=== PATIENT | male | born 2000 | race Caucasian/White ===

== ENCOUNTER 2019-08-22 06:01 | Emergency (ER) | payer OTHER ==
[~2019-08-22] VITALS: Ht 182.9 cm; Wt 90.7 kg
[2019-08-22 06:34] LABS: ABSOLUTE NEUTROPHILS 3.4 thou/uL (1.4-8.2); BASOPHILS 0.6 % (0.0-2.0); EOSINOPHILS 0.7 % (0.0-3.0); HEMATOCRIT 48.1 % (42.0-52.0); LYMPHOCYTES 34.7 % (24.0-44.0); MCH 30.4 pg (26.0-34.0); MCHC 33.2 g/dL (28.0-37.0); MCV 91.5 fL (80.0-100.0); MONOCYTES 10.6 % (1.0-8.0); PLATELET COUNT 266 thou/uL (150-400); POLYS 53.4 % (36.0-66.0); RBC 5.26 mil/uL (4.50-6.00); RDW 13.2 % (10.5-14.5); WBC 6.4 thou/uL (4.0-11.0)
[2019-08-22 06:36] LABS: POTASSIUM 3.8 mmol/L (3.5-5.1)
[2019-08-22 06:42] LABS: DIRECT BILIRUBIN 0.2 mg/dL (<0.1-0.2); TOTAL BILIRUBIN 1.4 mg/dL (<0.1-1.0)
[2019-08-22] MEDS ORDERED: ZOFRAN ODT4 MG PO (09:38)
[2019-08-22 09:51] VITALS: BP 114/61
== END 2019-08-22 09:52 | disposition home or self-care (01) ==
LOC: ER 06:01
PROVIDERS: Emergency Medicine
DX: K52.9 Noninfective gastroenteritis and colitis, unspecified (principal); F17.210 Nicotine dependence, cigarettes, uncomplicated

== ENCOUNTER 2019-08-28 17:26 | Emergency (ER) | payer OTHER ==
[~2019-08-28] VITALS: Ht 182.9 cm; Wt 81.7 kg
[~2019-08-28 17:26] MED LIST: ZOFRAN ODT4 MG PO
[2019-08-28 18:22] LABS: URINE BLOOD NEGATIVE (Negative); URINE CLARITY CLEAR; URINE COLOR YELLOW; URINE GLUCOSE-RANDOM* NEGATIVE (Negative); URINE KETONES NEGATIVE (Negative); URINE LEUKOCYTES-REFLEX NEGATIVE (Negative); URINE NITRITE-REFLEX NEGATIVE (Negative); URINE PROTEIN (DIPSTICK) TRACE (Negative); URINE SPECIFIC GRAVITY >= 1.030 (1.005-1.035); URINE UROBILINOGEN 0.2 E.U./dl (0.2-1.0)
[2019-08-28 18:24] LABS: ICTOTEST (BILI CONFIRMATORY) Negative (Negative); URINE BILIRUBIN NEGATIVE (Negative)
[2019-08-28 19:34] VITALS: BP 114/76
[2019-08-29] MEDS ORDERED: PHENERGAN 25 MG25 M1 PO ×2 (19:21)
[2019-08-29] MEDS ORDERED: LEVSIN0.125 MG PO ×2 (19:21)
[2019-08-29] MEDS ORDERED: NAPROSYN500 MG PO ×2 (19:21)
[2019-08-29] MEDS ORDERED: PEPCID20 MG PO ×2 (19:21)
== END 2019-08-28 19:34 | disposition left against medical advice (07) ==
LOC: ER 17:26
PROVIDERS: Emergency Medicine
DX: M54.5 Low back pain (principal); F17.210 Nicotine dependence, cigarettes, uncomplicated

== ENCOUNTER 2019-08-29 15:44 | Emergency (ER) | payer OTHER ==
[~2019-08-29] VITALS: Ht 182.9 cm; Wt 81.7 kg
[2019-08-29 17:27] LABS: ABSOLUTE NEUTROPHILS 6.7 thou/uL (1.4-8.2); BASOPHILS 0.2 % (0.0-2.0); HEMATOCRIT 48.7 % (42.0-52.0); HEMOGLOBIN 16.3 gm/dL (14.0-18.0); LYMPHOCYTES 14.3 % (24.0-44.0); MCHC 33.6 g/dL (28.0-37.0); MCV 92.2 fL (80.0-100.0); MONOCYTES 7.9 % (1.0-8.0); PLATELET COUNT 253 thou/uL (150-400); POLYS 77.6 % (36.0-66.0); RBC 5.28 mil/uL (4.50-6.00); WBC 8.7 thou/uL (4.0-11.0)
[2019-08-29 17:28] LABS: URINE BILIRUBIN NEGATIVE (Negative); URINE BLOOD NEGATIVE (Negative); URINE CLARITY CLEAR; URINE COLOR YELLOW; URINE GLUCOSE-RANDOM* NEGATIVE (Negative); URINE KETONES TRACE (Negative); URINE LEUKOCYTES-REFLEX TRACE (Negative); URINE NITRITE-REFLEX NEGATIVE (Negative); URINE PROTEIN (DIPSTICK) NEGATIVE (Negative)
[2019-08-29 17:48] LABS: ALBUMIN 4.9 g/dL (3.4-5.0); POTASSIUM 3.8 mmol/L (3.5-5.1); TOTAL BILIRUBIN 0.9 mg/dL (<0.1-1.0); TOTAL PROTEIN 8.2 g/dL (6.4-8.2)
[2019-08-29 17:54] LABS: CALCIUM 10.2 mg/dL (8.5-10.1)
[2019-08-29] MEDS ORDERED: LEVSIN0.125 MG PO (19:21)
[2019-08-29] MEDS ORDERED: PHENERGAN 25 MG25 M1 PO (19:21)
[2019-08-29] MEDS ORDERED: NAPROSYN500 MG PO (19:21)
[2019-08-29] MEDS ORDERED: PEPCID20 MG PO (19:21)
[2019-08-29 20:45] VITALS: BP 112/61
[2019-08-30] MEDS ORDERED: CARAFATE 1 GM TA1 G1 PO (15:25)
[2019-08-30] MEDS ORDERED: OMEPRAZOLE40 MG PO (15:25)
== END 2019-08-29 20:45 | disposition home or self-care (01) ==
LOC: ER 15:44
PROVIDERS: Emergency Medicine
DX: R10.32 Left lower quadrant pain (principal); R11.2 Nausea with vomiting, unspecified; F17.210 Nicotine dependence, cigarettes, uncomplicated

== ENCOUNTER 2019-08-30 10:12 | Inpatient (IN) | payer OTHER ==
[~2019-08-30] VITALS: Ht 182.9 cm; Wt 81.6 kg
[~2019-08-30 10:12] MED LIST changes: +LEVSIN0.125 MG PO; +NAPROSYN500 MG PO; +PEPCID20 MG PO; +PHENERGAN 25 MG25 M1 PO
[2019-08-30 10:37] VITALS: BP 143/77
[2019-08-30 11:43] LABS: ABSOLUTE NEUTROPHILS 5.8 thou/uL (1.4-8.2); BASOPHILS 0.4 % (0.0-2.0); EOSINOPHILS 0.1 % (0.0-3.0); HEMOGLOBIN 15.2 gm/dL (14.0-18.0); LYMPHOCYTES 15.2 % (24.0-44.0); MCH 30.6 pg (26.0-34.0); MCV 92.7 fL (80.0-100.0); MONOCYTES 6.4 % (1.0-8.0); PLATELET COUNT 241 thou/uL (150-400); POLYS 77.9 % (36.0-66.0); RBC 4.97 mil/uL (4.50-6.00); RDW 13.1 % (10.5-14.5); WBC 7.4 thou/uL (4.0-11.0)
[2019-08-30 11:48] LABS: AMP/METHAMP Negative (Negative); BARBITURATES Negative (Negative); BENZODIAZEPINES Negative (Negative); COCAINE Negative (Negative); METHADONE Negative (Negative); OPIATES POSITIVE (Negative); PCP Negative (Negative)
--- NOTE | 2019-08-30 11:51 | EKG ---
[place] [address] [facility] [place] [address] ELECTROCARDIOGRAM REPORT Name: FRANKIE AGUILAR Room #: REG DIONISIO Norton#: [id number] Admission: 08/30/19 Attend Phys: Discharge: Date of : [birth year] Report #: [id number] THIS REPORT FOR: //name// [facility] ED Test Date: 2019-08-30 Test Time: 11:14:47 Pat Name: FRANKIE AGUILAR Department: Room: Gender: Nurse Emergency: [facility] : 2000 Requested By: Len Easley Order Number: [id number] MD: Garrett Weeks Measurements Intervals [place] Rate: 57 P: 69 MT: 130 QRS: 82 QRSD: 105 T: 61 QT: 426 QTc: 415 Interpretive Statements Sinus bradycardia Otherwise normal tracing No previous ECG available for comparison Electronically Signed On 08-30-2019 11:50:44 [employer]IT[employer]ART[employer] by Garrett Weeks [email or web address] <ELECTRONICALLY SIGNED> By: Garrett Weeks MD, [facility] 08/30/19 1150 1114 1114 Garrett Weeks MD, FACC /EPI
[2019-08-30 11:53] LABS: ALBUMIN 4.5 g/dL (3.4-5.0); TOTAL BILIRUBIN 0.8 mg/dL (<0.1-1.0); TOTAL PROTEIN 7.8 g/dL (6.4-8.2)
[2019-08-30 14:24] LABS: URINE BILIRUBIN NEGATIVE (Negative); URINE BLOOD NEGATIVE (Negative); URINE CLARITY CLEAR; URINE GLUCOSE-RANDOM* NEGATIVE (Negative); URINE KETONES 1+ (Negative); URINE LEUKOCYTES-REFLEX NEGATIVE (Negative); URINE NITRITE-REFLEX NEGATIVE (Negative); URINE PROTEIN (DIPSTICK) NEGATIVE (Negative); URINE UROBILINOGEN 0.2 E.U./dl (0.2-1.0)
[2019-08-30 14:26] LABS: URINE COLOR YELLOW
[2019-08-30] MEDS ORDERED: OMEPRAZOLE40 MG PO ×2 (15:25)
[2019-08-30] MEDS ORDERED: CARAFATE 1 GM TA1 G1 PO ×2 (15:25)
[2019-08-30 17:45] VITALS: BP 101/58
[2019-08-30 23:01] VITALS: BP 116/73
[2019-08-30 23:27] VITALS: BP 123/68
[2019-08-30 23:45] VITALS: BP 91/69
[2019-08-31 03:20] VITALS: BP 129/58
--- NOTE | 2019-08-31 07:21 | NUR ---
NEW ADMIT FROM THE ER. PT ARRIVED TO FLOOR AT 2345. PT HAS A LEFT AC. PT PULLED OUT THE IV @ 0633. PT HAS NS RUNNING AT 125/HR. PT IS ALERT AND ORIENTED X 4. PT IS UP AD YE. PT HAS NO COMPLAINTS OF N/V. PT STATES THAT HIS LOWER BACK HURTS BUT BELIEVES IT IS BECAUSE OF THE HOSPITAL BED.
--- NOTE | 2019-08-31 07:30 | NUR ---
I HAVE REVIEWED THE DOCUMENTATION BY Fernanda TIAN LPN FROM AND I CONCUR WITH IT.
[2019-08-31 08:00] VITALS: BP 138/73
[2019-08-31 13:25] VITALS: BP 138/73
--- NOTE | 2019-08-31 15:10 | NUR ---
DC ORDERS RECEIVED. IV WAS PULLED OUT THIS AM BY PATIENT. DC INSTRUCTIONS AND F/U APPOINTMENT REVIEWED WITH PATIENT. PT REFUSED W/C ESCORT. WALKED HIMSELF OFF FLOOR WITH S/O. THE MOTHER WAS VERY AGGITATED TODAY WHEN ARRIVED, DEMANDING ANSWERES ABOUT WHAT WAS WRONG WITH HER SON BEING CONFRONTATIONAL, DEMANDING TO SPEAK WITH THE DOCTOR. DR. CANTOR NOTOFIED AND STATED SHE WOULD BE HERE SHORTLY. MOTHER THEN DID NOT WAIT FOR THE DOCTOR THEN LEFT. SON DID APPOLOGISED ABOUT HIS MOTHER SEVERAL TIMES.
== END 2019-08-31 14:00 | disposition home or self-care (01) | DRG 897 ==
LOC: ER 10:12 → EROBS 16:15 → 4W 23:53
PROVIDERS: Physician Assistant; ADMIT Hospitalist
DX: F12.188 Cannabis abuse with other cannabis-induced disorder (principal); R11.15 Cyclical vomiting syndrome unrelated to migraine; E86.0 Dehydration
CPT/HCPCS: 10047

== ENCOUNTER 2021-01-25 08:39 | Emergency (ER) | payer OTHER ==
[~2021-01-25] VITALS: Ht 182.9 cm; Wt 95.3 kg
[~2021-01-25 08:39] MED LIST changes: +CARAFATE 1 GM TA1 G1 PO; +OMEPRAZOLE40 MG PO
[2021-01-25 09:07] LABS: ABSOLUTE NEUTROPHILS 3.5 thou/uL (1.4-8.2); BASOPHILS 0.4 % (0.0-2.0); EOSINOPHILS 0.7 % (0.0-3.0); HEMATOCRIT 46.7 % (42.0-52.0); HEMOGLOBIN 15.8 gm/dL (14.0-18.0); LYMPHOCYTES 23.3 % (24.0-44.0); MCH 31.4 pg (26.0-34.0); MCHC 33.9 g/dL (28.0-37.0); MCV 92.8 fL (80.0-100.0); PLATELET COUNT 249 thou/uL (150-400); POLYS 65.6 % (36.0-66.0); RBC 5.03 mil/uL (4.50-6.00); RDW 12.7 % (10.5-14.5); WBC 5.3 thou/uL (4.0-11.0)
[2021-01-25 09:09] LABS: URINE BILIRUBIN NEGATIVE (Negative); URINE BLOOD NEGATIVE (Negative); URINE CLARITY CLEAR; URINE COLOR YELLOW; URINE GLUCOSE-RANDOM* NEGATIVE (Negative); URINE KETONES NEGATIVE (Negative); URINE LEUKOCYTES-REFLEX NEGATIVE (Negative); URINE NITRITE-REFLEX NEGATIVE (Negative); URINE PROTEIN (DIPSTICK) NEGATIVE (Negative); URINE SPECIFIC GRAVITY >= 1.030 (1.005-1.035); URINE UROBILINOGEN 0.2 E.U./dl (0.2-1.0)
[2021-01-25 09:28] LABS: CALCIUM 9.1 mg/dL (8.5-10.1); CREATININE 1.1 mg/dL (0.7-1.3)
[2021-01-25 09:34] LABS: ALBUMIN 4.3 g/dL (3.4-5.0); TOTAL BILIRUBIN 0.7 mg/dL (0.2-1.0); TOTAL PROTEIN 7.4 g/dL (6.4-8.2)
[2021-01-25] MEDS ORDERED: ZOFRAN ODT4 MG PO (11:10)
[2021-01-25 11:38] VITALS: BP 120/85
== END 2021-01-25 11:38 | disposition home or self-care (01) ==
LOC: ER 08:39
PROVIDERS: Emergency Medicine
DX: K52.9 Noninfective gastroenteritis and colitis, unspecified (principal); Z79.899 Other long term (current) drug therapy

== ENCOUNTER 2021-01-27 06:14 | Emergency (ER) | payer OTHER ==
[~2021-01-27] VITALS: Ht 185.4 cm; Wt 95.3 kg
[2021-01-27 06:49] LABS: ABSOLUTE NEUTROPHILS 3.2 thou/uL (1.4-8.2); BASOPHILS 0.5 % (0.0-2.0); EOSINOPHILS 0.7 % (0.0-3.0); HEMATOCRIT 46.7 % (42.0-52.0); HEMOGLOBIN 15.7 gm/dL (14.0-18.0); LYMPHOCYTES 33.4 % (24.0-44.0); MCH 30.9 pg (26.0-34.0); MCHC 33.7 g/dL (28.0-37.0); MCV 91.9 fL (80.0-100.0); MONOCYTES 10.8 % (1.0-8.0); PLATELET COUNT 267 thou/uL (150-400); POLYS 54.6 % (36.0-66.0); RBC 5.08 mil/uL (4.50-6.00); RDW 12.8 % (10.5-14.5); WBC 5.8 thou/uL (4.0-11.0)
[2021-01-27 06:51] LABS: CALCIUM 9.6 mg/dL (8.5-10.1); CREATININE 1.1 mg/dL (0.7-1.3); POTASSIUM 3.8 mmol/L (3.5-5.1)
[2021-01-27 06:57] LABS: ALBUMIN 4.6 g/dL (3.4-5.0); DIRECT BILIRUBIN 0.2 mg/dL (<0.1-0.2); TOTAL BILIRUBIN 0.8 mg/dL (0.2-1.0); TOTAL PROTEIN 7.4 g/dL (6.4-8.2)
[2021-01-27] MEDS ORDERED: NORCO5 PO (09:39)
[2021-01-27] MEDS ORDERED: BENTYL 10 MG CA10 M1 PO (09:39)
[2021-01-27] MEDS ORDERED: ZOFRAN ODT4 MG PO (09:39)
[2021-01-27 10:43] VITALS: BP 119/73
== END 2021-01-27 10:43 | disposition home or self-care (01) ==
LOC: ER 06:14
PROVIDERS: Emergency Medicine
DX: K85.80 Other acute pancreatitis without necrosis or infection (principal); Z20.822 Contact with and (suspected) exposure to COVID-19; R11.2 Nausea with vomiting, unspecified; J34.89 Other specified disorders of nose and nasal sinuses; F17.210 Nicotine dependence, cigarettes, uncomplicated; Z79.899 Other long term (current) drug therapy

== ENCOUNTER 2021-02-08 06:39 | Emergency (ER) | payer OTHER ==
[~2021-02-08] VITALS: Ht 188 cm; Wt 95.3 kg
[~2021-02-08 06:39] MED LIST changes: +BENTYL 10 MG CA10 M1 PO; +NORCO5 PO
[2021-02-08 07:39] LABS: BASOPHILS 0.5 % (0.0-2.0); EOSINOPHILS 0.3 % (0.0-3.0); HEMATOCRIT 44.6 % (42.0-52.0); HEMOGLOBIN 15.5 gm/dL (14.0-18.0); LYMPHOCYTES 19.1 % (24.0-44.0); MCH 31.7 pg (26.0-34.0); MCHC 34.8 g/dL (28.0-37.0); MCV 91.1 fL (80.0-100.0); MONOCYTES 13.5 % (1.0-8.0); PLATELET COUNT 251 thou/uL (150-400); POLYS 66.6 % (36.0-66.0); RDW 12.8 % (10.5-14.5); WBC 7.5 thou/uL (4.0-11.0)
[2021-02-08 07:52] LABS: CALCIUM 9.3 mg/dL (8.5-10.1); POTASSIUM 3.2 mmol/L (3.5-5.1)
[2021-02-08 07:58] LABS: ALBUMIN 4.4 g/dL (3.4-5.0); DIRECT BILIRUBIN 0.2 mg/dL (<0.1-0.2); TOTAL BILIRUBIN 1.1 mg/dL (0.2-1.0); TOTAL PROTEIN 7.3 g/dL (6.4-8.2)
[2021-02-08 08:03] LABS: URINE BLOOD NEGATIVE (Negative); URINE CLARITY CLEAR; URINE COLOR YELLOW; URINE GLUCOSE-RANDOM* NEGATIVE (Negative); URINE KETONES 1+ (Negative); URINE LEUKOCYTES-REFLEX NEGATIVE (Negative); URINE NITRITE-REFLEX NEGATIVE (Negative); URINE PROTEIN (DIPSTICK) NEGATIVE (Negative); URINE SPECIFIC GRAVITY 1.025 (1.005-1.035)
[2021-02-08 08:06] LABS: ICTOTEST (BILI CONFIRMATORY) Negative (Negative); URINE BILIRUBIN NEGATIVE (Negative)
[2021-02-08] MEDS ORDERED: HYDROCODON-ACE1 EAC7 PO (10:54)
[2021-02-08] MEDS ORDERED: ZOFRAN ODT4 MG PO (10:54)
[2021-02-08 12:54] VITALS: BP 115/52
== END 2021-02-08 12:50 | disposition home or self-care (01) ==
LOC: ER 06:39
PROVIDERS: Emergency Medicine
DX: R10.13 Epigastric pain (principal); R11.2 Nausea with vomiting, unspecified; F17.210 Nicotine dependence, cigarettes, uncomplicated

== ENCOUNTER 2021-02-26 12:33 | Emergency (ER) | payer OTHER ==
[~2021-02-26] VITALS: Ht 182.9 cm; Wt 97.5 kg
[~2021-02-26 12:33] MED LIST changes: +HYDROCODON-ACE1 EAC7 PO
[2021-02-26 13:31] LABS: BASOPHILS 0.1 % (0.0-2.0); HEMATOCRIT 46.6 % (42.0-52.0); HEMOGLOBIN 16.1 gm/dL (14.0-18.0); LYMPHOCYTES 7.8 % (24.0-44.0); MCH 31.8 pg (26.0-34.0); MCHC 34.6 g/dL (28.0-37.0); MCV 91.9 fL (80.0-100.0); PLATELET COUNT 270 thou/uL (150-400); POLYS 88.1 % (36.0-66.0); RBC 5.07 mil/uL (4.50-6.00); RDW 12.9 % (10.5-14.5); WBC 10.3 thou/uL (4.0-11.0)
[2021-02-26 13:34] LABS: CALCIUM 9.4 mg/dL (8.5-10.1); POTASSIUM 3.9 mmol/L (3.5-5.1)
[2021-02-26 13:47] LABS: ALBUMIN 4.7 g/dL (3.4-5.0); MAGNESIUM 2.1 mg/dL (1.8-2.4); TOTAL BILIRUBIN 1.1 mg/dL (0.2-1.0); TOTAL PROTEIN 7.9 g/dL (6.4-8.2)
[2021-02-26 15:03] LABS: URINE BILIRUBIN NEGATIVE (Negative); URINE BLOOD NEGATIVE (Negative); URINE CLARITY CLEAR; URINE COLOR YELLOW; URINE GLUCOSE-RANDOM* NEGATIVE (Negative); URINE KETONES 3+ (Negative); URINE LEUKOCYTES-REFLEX NEGATIVE (Negative); URINE NITRITE-REFLEX NEGATIVE (Negative); URINE PROTEIN (DIPSTICK) NEGATIVE (Negative); URINE SPECIFIC GRAVITY >= 1.030 (1.005-1.035); URINE UROBILINOGEN 0.2 E.U./dl (0.2-1.0)
[2021-02-26 15:08] LABS: URINE REDUCING SUBSTANCE NEGATIVE
[2021-02-26] MEDS ORDERED: ZOFRAN ODT4 MG PO (17:11)
[2021-02-26] MEDS ORDERED: PEPCID40 MG PO (17:11)
[2021-02-26 17:16] VITALS: BP 101/62
== END 2021-02-26 17:17 | disposition home or self-care (01) ==
LOC: ER 12:33
PROVIDERS: Emergency Medicine
DX: K29.70 Gastritis, unspecified, without bleeding (principal); F17.210 Nicotine dependence, cigarettes, uncomplicated

== ENCOUNTER → 2021-02-28 | Emergency (ER) | payer OTHER ==
[~2021-02-28] VITALS: Ht 182.9 cm; Wt 95.3 kg
[~2021-02-28] MED LIST changes: +PEPCID40 MG PO
[2021-02-28 18:23] VITALS: BP 132/86
[2021-02-28 18:42] LABS: URINE BILIRUBIN NEGATIVE (Negative); URINE BLOOD NEGATIVE (Negative); URINE CLARITY CLEAR; URINE COLOR YELLOW; URINE GLUCOSE-RANDOM* NEGATIVE (Negative); URINE KETONES 2+ (Negative); URINE LEUKOCYTES-REFLEX NEGATIVE (Negative); URINE NITRITE-REFLEX NEGATIVE (Negative); URINE PROTEIN (DIPSTICK) NEGATIVE (Negative); URINE UROBILINOGEN 0.2 E.U./dl (0.2-1.0)
== END ==
LOC: ER 18:08
PROVIDERS: Emergency Medicine
DX: R10.9 Unspecified abdominal pain (principal); Z53.21 Procedure and treatment not carried out due to patient leaving prior to being seen by health care provider

== ENCOUNTER 2021-03-25 08:17 | Emergency (ER) | payer OTHER ==
[~2021-03-25] VITALS: Ht 182.9 cm; Wt 95.3 kg
[2021-03-25 09:08] LABS: URINE BLOOD TRACE (Negative); URINE CLARITY CLEAR; URINE COLOR YELLOW; URINE GLUCOSE-RANDOM* NEGATIVE (Negative); URINE KETONES 1+ (Negative); URINE LEUKOCYTES-REFLEX NEGATIVE (Negative); URINE NITRITE-REFLEX NEGATIVE (Negative); URINE PROTEIN (DIPSTICK) 1+ (Negative); URINE SPECIFIC GRAVITY >= 1.030 (1.005-1.035)
[2021-03-25 09:11] LABS: ICTOTEST (BILI CONFIRMATORY) Negative (Negative); URINE BILIRUBIN NEGATIVE (Negative)
[2021-03-25 09:22] LABS: ABSOLUTE NEUTROPHILS 4.3 thou/uL (1.4-8.2); BASOPHILS 0.4 % (0.0-2.0); EOSINOPHILS 0.2 % (0.0-3.0); HEMATOCRIT 45.9 % (42.0-52.0); HEMOGLOBIN 15.8 gm/dL (14.0-18.0); LYMPHOCYTES 18.9 % (24.0-44.0); MCH 31.6 pg (26.0-34.0); MCHC 34.4 g/dL (28.0-37.0); MCV 91.9 fL (80.0-100.0); MONOCYTES 8.5 % (1.0-8.0); PLATELET COUNT 240 thou/uL (150-400); RDW 12.9 % (10.5-14.5); WBC 5.9 thou/uL (4.0-11.0)
[2021-03-25 09:22] LABS: CASTS None Seen /LPF (None Seen); MUCUS >6 Heavy strn/LPF (None Seen); SQUAMOUS 0-3 Few /LPF (0-3)
[2021-03-25 09:23] LABS: BACTERIA-REFLEX 1-9 Few /HPF (None Seen); CRYSTALS None Seen /LPF (None Seen); URINE RBC 1-2 Rare /HPF (NONE SEEN); URINE WBC-REFLEX 0-5 Rare /HPF (0-5)
[2021-03-25 09:36] LABS: CALCIUM 9.4 mg/dL (8.5-10.1); CREATININE 1.1 mg/dL (0.7-1.3); POTASSIUM 3.7 mmol/L (3.5-5.1)
[2021-03-25 10:14] LABS: ALBUMIN 4.6 g/dL (3.4-5.0); TOTAL BILIRUBIN 1.6 mg/dL (0.2-1.0); TOTAL PROTEIN 7.6 g/dL (6.4-8.2)
[2021-03-25] MEDS ORDERED: NEXIUM40 MG PO ×2 (10:57→11:31)
[2021-03-25] MEDS ORDERED: ZOFRAN ODT4 MG PO ×2 (10:58→11:31)
[2021-03-25 11:34] VITALS: BP 109/66
== END 2021-03-25 11:35 | disposition home or self-care (01) ==
LOC: ER 08:17
PROVIDERS: Emergency Medicine
DX: R10.13 Epigastric pain (principal); F17.210 Nicotine dependence, cigarettes, uncomplicated

== ENCOUNTER 2021-04-27 17:04 | Emergency (ER) | payer OTHER ==
[~2021-04-27] VITALS: Ht 182.9 cm; Wt 95.3 kg
[~2021-04-27 17:04] MED LIST changes: +NEXIUM40 MG PO
[2021-04-27 17:41] LABS: ABSOLUTE NEUTROPHILS 7.7 thou/uL (1.4-8.2); BASOPHILS 0.3 % (0.0-2.0); HEMATOCRIT 47.6 % (42.0-52.0); HEMOGLOBIN 15.6 gm/dL (14.0-18.0); LYMPHOCYTES 11.1 % (24.0-44.0); MCH 30.6 pg (26.0-34.0); MCHC 32.8 g/dL (28.0-37.0); MCV 93.3 fL (80.0-100.0); MONOCYTES 5.9 % (1.0-8.0); PLATELET COUNT 260 thou/uL (150-400); POLYS 82.7 % (36.0-66.0); RDW 13.5 % (10.5-14.5); WBC 9.3 thou/uL (4.0-11.0)
[2021-04-27 17:51] LABS: CALCIUM 9.2 mg/dL (8.5-10.1); CREATININE 1.1 mg/dL (0.7-1.3); POTASSIUM 3.9 mmol/L (3.5-5.1)
[2021-04-27 17:52] LABS: URINE BILIRUBIN NEGATIVE (Negative); URINE BLOOD TRACE (Negative); URINE CLARITY CLEAR; URINE COLOR YELLOW; URINE GLUCOSE-RANDOM* NEGATIVE (Negative); URINE KETONES NEGATIVE (Negative); URINE LEUKOCYTES-REFLEX NEGATIVE (Negative); URINE NITRITE-REFLEX NEGATIVE (Negative); URINE PROTEIN (DIPSTICK) NEGATIVE (Negative); URINE SPECIFIC GRAVITY 1.015 (1.005-1.035); URINE UROBILINOGEN 0.2 E.U./dl (0.2-1.0)
[2021-04-27 17:57] LABS: ALBUMIN 4.5 g/dL (3.4-5.0); TOTAL BILIRUBIN 0.7 mg/dL (0.2-1.0); TOTAL PROTEIN 7.5 g/dL (6.4-8.2)
[2021-04-27] MEDS ORDERED: REGLAN 5 MG TAB5 MG PO (18:16)
[2021-04-27] MEDS ORDERED: REGLAN10 MG PO (18:16)
[2021-04-27 18:17] VITALS: BP 130/72
== END 2021-04-27 18:17 | disposition home or self-care (01) ==
LOC: ER 17:04
PROVIDERS: Emergency Medicine
DX: R10.13 Epigastric pain (principal); R11.2 Nausea with vomiting, unspecified; F17.210 Nicotine dependence, cigarettes, uncomplicated; R19.7 Diarrhea, unspecified

== ENCOUNTER 2021-04-30 03:32 | Emergency (ER) | payer OTHER ==
[~2021-04-30] VITALS: Ht 185.4 cm; Wt 95.3 kg
[~2021-04-30 03:32] MED LIST changes: +REGLAN 5 MG TAB5 MG PO; +REGLAN10 MG PO
[2021-04-30 04:24] LABS: URINE BILIRUBIN NEGATIVE (Negative); URINE BLOOD TRACE (Negative); URINE CLARITY CLEAR; URINE COLOR YELLOW; URINE GLUCOSE-RANDOM* NEGATIVE (Negative); URINE KETONES 1+ (Negative); URINE LEUKOCYTES-REFLEX NEGATIVE (Negative); URINE NITRITE-REFLEX NEGATIVE (Negative); URINE PROTEIN (DIPSTICK) NEGATIVE (Negative); URINE SPECIFIC GRAVITY 1.025 (1.005-1.035); URINE UROBILINOGEN 0.2 E.U./dl (0.2-1.0)
[2021-04-30 05:06] LABS: ABSOLUTE NEUTROPHILS 5.6 thou/uL (1.4-8.2); BASOPHILS 0.3 % (0.0-2.0); EOSINOPHILS 0.2 % (0.0-3.0); HEMATOCRIT 45.6 % (42.0-52.0); HEMOGLOBIN 15.5 gm/dL (14.0-18.0); LYMPHOCYTES 21.4 % (24.0-44.0); MCH 31.3 pg (26.0-34.0); MCV 92.1 fL (80.0-100.0); MONOCYTES 9.6 % (1.0-8.0); PLATELET COUNT 287 thou/uL (150-400); POLYS 68.5 % (36.0-66.0); RBC 4.96 mil/uL (4.50-6.00); RDW 13.2 % (10.5-14.5); WBC 8.2 thou/uL (4.0-11.0)
[2021-04-30 05:09] LABS: CALCIUM 9.4 mg/dL (8.5-10.1); CREATININE 1.2 mg/dL (0.7-1.3); POTASSIUM 3.3 mmol/L (3.5-5.1)
[2021-04-30 05:15] LABS: ALBUMIN 4.7 g/dL (3.4-5.0); DIRECT BILIRUBIN 0.2 mg/dL (<0.1-0.2); TOTAL BILIRUBIN 1.6 mg/dL (0.2-1.0); TOTAL PROTEIN 7.8 g/dL (6.4-8.2)
[2021-04-30] MEDS ORDERED: LEVSIN-SL0.125 MG PO (06:55)
[2021-04-30 07:12] VITALS: BP 127/74
--- NOTE | 2021-05-02 07:35 | EKG ---
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
== END 2021-04-30 07:12 | disposition home or self-care (01) ==
LOC: ER 03:32
PROVIDERS: Student in an Organized Health Care Education/Training Program
DX: R10.31 Right lower quadrant pain (principal); R11.0 Nausea; R10.13 Epigastric pain; F17.210 Nicotine dependence, cigarettes, uncomplicated; F12.90 Cannabis use, unspecified, uncomplicated; Z79.891 Long term (current) use of opiate analgesic

== ENCOUNTER 2021-05-18 07:34 | Emergency (ER) | payer OTHER ==
[~2021-05-18] VITALS: Ht 182.9 cm; Wt 90.7 kg
[~2021-05-18 07:34] MED LIST changes: +LEVSIN-SL0.125 MG PO
[2021-05-18 08:29] LABS: URINE BILIRUBIN 1+ (Negative); URINE BLOOD TRACE (Negative); URINE CLARITY CLEAR; URINE COLOR YELLOW; URINE GLUCOSE-RANDOM* NEGATIVE (Negative); URINE KETONES 1+ (Negative); URINE LEUKOCYTES-REFLEX TRACE (Negative); URINE NITRITE-REFLEX NEGATIVE (Negative); URINE PROTEIN (DIPSTICK) TRACE (Negative); URINE SPECIFIC GRAVITY 1.025 (1.005-1.035); URINE UROBILINOGEN 0.2 E.U./dl (0.2-1.0)
[2021-05-18 08:38] LABS: ABSOLUTE NEUTROPHILS 9.9 thou/uL (1.4-8.2); BASOPHILS 0.1 % (0.0-2.0); HEMATOCRIT 47.8 % (42.0-52.0); HEMOGLOBIN 16.7 gm/dL (14.0-18.0); LYMPHOCYTES 7.3 % (24.0-44.0); MCH 31.9 pg (26.0-34.0); MCHC 34.9 g/dL (28.0-37.0); MCV 91.4 fL (80.0-100.0); MONOCYTES 4.8 % (1.0-8.0); PLATELET COUNT 274 thou/uL (150-400); POLYS 87.8 % (36.0-66.0); RBC 5.23 mil/uL (4.50-6.00); RDW 13.6 % (10.5-14.5); WBC 11.3 thou/uL (4.0-11.0)
[2021-05-18 08:42] LABS: CALCIUM 9.6 mg/dL (8.5-10.1); CREATININE 1.2 mg/dL (0.7-1.3); POTASSIUM 3.8 mmol/L (3.5-5.1)
[2021-05-18 08:47] LABS: ALBUMIN 4.5 g/dL (3.4-5.0); TOTAL BILIRUBIN 0.9 mg/dL (0.2-1.0); TOTAL PROTEIN 8.1 g/dL (6.4-8.2)
[2021-05-18 09:06] VITALS: BP 150/82
== END 2021-05-18 09:13 | disposition home or self-care (01) ==
LOC: ER 07:34
PROVIDERS: Emergency Medicine
DX: R10.13 Epigastric pain (principal); Z20.822 Contact with and (suspected) exposure to COVID-19; R11.2 Nausea with vomiting, unspecified; R05 Cough; R09.81 Nasal congestion; F11.10 Opioid abuse, uncomplicated; F17.210 Nicotine dependence, cigarettes, uncomplicated

== ENCOUNTER 2021-07-19 09:13 | Emergency (ER) | payer OTHER ==
[~2021-07-19] VITALS: Ht 182.9 cm; Wt 95.3 kg
[2021-07-19 10:21] VITALS: BP 126/94
[2021-07-19] MEDS ORDERED: ZOFRAN ODT4 MG PO (10:26)
[2021-07-19] MEDS ORDERED: CEPHALEXIN500 MG PO (10:26)
== END 2021-07-19 10:30 | disposition home or self-care (01) ==
LOC: ER 09:13
DX: L03.314 Cellulitis of groin (principal); Z20.822 Contact with and (suspected) exposure to COVID-19; R11.10 Vomiting, unspecified; F17.210 Nicotine dependence, cigarettes, uncomplicated

== ENCOUNTER 2021-10-17 10:31 | Emergency (ER) | payer OTHER ==
[~2021-10-17] VITALS: Ht 182.9 cm; Wt 95.3 kg
[~2021-10-17 10:31] MED LIST changes: +CEPHALEXIN500 MG PO
[2021-10-17 11:08] LABS: HEMOGLOBIN 16.6 gm/dL (14.0-18.0); LYMPHOCYTES 11.3 % (24.0-44.0); MONOCYTES 6.1 % (1.0-8.0)
[2021-10-17 11:10] LABS: ABSOLUTE NEUTROPHILS 8.9 thou/uL (1.4-8.2); BASOPHILS 0.2 % (0.0-2.0); HEMATOCRIT 48.3 % (42.0-52.0); MCH 31.1 pg (26.0-34.0); MCHC 34.4 g/dL (28.0-37.0); MCV 90.3 fL (80.0-100.0); PLATELET COUNT 277 thou/uL (150-400); POLYS 82.4 % (36.0-66.0); RBC 5.36 mil/uL (4.50-6.00); RDW 13.3 % (10.5-14.5); WBC 10.8 thou/uL (4.0-11.0)
[2021-10-17 11:21] LABS: CALCIUM 9.8 mg/dL (8.5-10.1); CREATININE 1.1 mg/dL (0.7-1.3); POTASSIUM 3.5 mmol/L (3.5-5.1)
[2021-10-17 11:27] LABS: ALBUMIN 5.1 g/dL (3.4-5.0); MAGNESIUM 2.2 mg/dL (1.8-2.4); TOTAL BILIRUBIN 1.3 mg/dL (0.2-1.0); TOTAL PROTEIN 8.2 g/dL (6.4-8.2)
[2021-10-17 11:30] LABS: URINE BLOOD NEGATIVE (Negative); URINE CLARITY CLEAR; URINE COLOR YELLOW; URINE GLUCOSE-RANDOM* NEGATIVE (Negative); URINE KETONES 3+ (Negative); URINE LEUKOCYTES-REFLEX NEGATIVE (Negative); URINE NITRITE-REFLEX NEGATIVE (Negative); URINE PROTEIN (DIPSTICK) TRACE (Negative); URINE SPECIFIC GRAVITY >= 1.030 (1.005-1.035); URINE UROBILINOGEN 0.2 E.U./dl (0.2-1.0)
[2021-10-17 11:37] LABS: AMP/METHAMP Negative (Negative); BARBITURATES Negative (Negative); BENZODIAZEPINES Negative (Negative); COCAINE Negative (Negative); METHADONE Negative (Negative); OPIATES Negative (Negative); PCP Negative (Negative)
[2021-10-17 11:38] LABS: ICTOTEST (BILI CONFIRMATORY) Negative (Negative); URINE BILIRUBIN NEGATIVE (Negative); URINE REDUCING SUBSTANCE NEGATIVE
[2021-10-17] MEDS ORDERED: AMOX TR-K CLV1 EAC4 PO (12:50)
[2021-10-17] MEDS ORDERED: ZOFRAN ODT4 MG PO (12:50)
[2021-10-17 13:02] VITALS: BP 134/88
== END 2021-10-17 13:03 | disposition home or self-care (01) ==
LOC: ER 10:31
PROVIDERS: Student in an Organized Health Care Education/Training Program
DX: R11.2 Nausea with vomiting, unspecified (principal); F17.210 Nicotine dependence, cigarettes, uncomplicated